=== PATIENT | female | born 1945 | race Caucasian/White ===

== ENCOUNTER → 2016-07-28 | Outpatient (CLI) | payer MEDICARE ==
[2016-07-28 16:51] LABS: ALBUMIN 4.1 g/dL (3.4-5.0); CALCULATED IONIZED CALCIUM 4.3 mg/dL (3.8-4.6); TOTAL PROTEIN 7.4 g/dL (6.4-8.5)
[2016-07-28 17:22] LABS: CLARITY,URINE Cloudy; GLUCOSE, URINE (UA) Trace (Negative); LEUKOCYTE ESTERASE ,URINE 3+ (Negative); PH,URINE 5.5 (5.0 - 8.0)
[2016-07-28 17:42] LABS: BILIRUBIN,URINE 3+ (Negative)
[2016-07-28 17:49] LABS: COLOR,URINE Brown; URINE CENTRIFUGED VOLUME 12 mL
[2016-07-28 17:50] LABS: RBC,URINE TNTC /HPF
== END ==
LOC: LAB 16:19
PROVIDERS: ATTEND Family Medicine
DX: Z51.81 Encounter for therapeutic drug level monitoring (principal); Z79.01 Long term (current) use of anticoagulants; R79.89 Other specified abnormal findings of blood chemistry; E78.2 Mixed hyperlipidemia; G72.0 Drug-induced myopathy; K71.2 Toxic liver disease with acute hepatitis; N39.0 Urinary tract infection, site not specified; R31.9 Hematuria, unspecified
CPT/HCPCS: 36415; 80053; 80061; 81003; 81015; 82550; 82977; 85610; 87088

== ENCOUNTER → 2016-08-16 | Outpatient (CLI) | payer MEDICARE | LOC: RAD 09:51 | PROVIDERS: ATTEND Family Medicine | DX: N60.12 Diffuse cystic mastopathy of left breast (principal); E10.65 Type 1 diabetes mellitus with hyperglycemia | CPT/HCPCS: 36415; 76642; 82043; 83036; G0204 ==

== ENCOUNTER → 2016-08-23 | Outpatient (CLI) | payer MEDICARE | LOC: RAD 09:17 | PROVIDERS: ATTEND Family Medicine | DX: N63 Unspecified lump in breast (principal); D68.4 Acquired coagulation factor deficiency | CPT/HCPCS: 36415; 85610; 85730; 88305; 88342; 88360 ==

== ENCOUNTER → 2016-10-24 | Outpatient (CLI) | payer MEDICARE ==
[~2016-10-24] MED LIST: AMIT25TA9 PO; ASP81CT PO; ATN50T PO; CHOL10002 PO; DGX.25T PO; IBUP-793 PO; INSU100V8 SC; INSU300I SQ; LEVO150T PO; LEVO200T PO; LISI1TAB8 PO; Lantus; MAGN400O7 PO; NF-FAMCIT PO; TERB12CR3 TOP
[2016-10-24 13:33] LABS: MEAN CORPUSCULAR VOLUME 86 FL (80-100); MEAN PLATELET VOLUME 10.3 FL (6.0-9.5); PLATELET COUNT 429 10^3uL (150-450); WHITE BLOOD COUNT 15.22 10^3uL (4.0-11.0)
[2016-10-24 13:34] LABS: MEAN CORPUSCULAR HEMOGLOBIN 26.9 PG (26.0-34.0); MEAN CORPUSCULAR HGB CONC 31.4 g/dL (31.0-37.0)
[2016-10-24 13:56] LABS: ALBUMIN 3.7 g/dL (3.4-5.0); ANION GAP 13.9 MEQ/L (3-15); MAGNESIUM* 1.7 mg/dL (1.6-2.3); TOTAL PROTEIN 7.2 g/dL (6.4-8.5)
[2016-10-24 14:18] LABS: BAND NEUTROPHILS % 0 % (0-6); EOSINOPHILS % 2 % (0-4); MONOCYTES # 0.6 #; MONOCYTES % 4 % (3-11); RBC MORPH NORMAL (NORMAL); SEGMENTED NEUTROPHILS % 81 % (51-67); TOTAL CELLS COUNTED 100
[2016-10-24 19:33] LABS: IRON 31 ug/dL (50-170); UNBOUND IRON CONTENT 343 ug/dl (126-382)
== END ==
LOC: LAB 13:23
PROVIDERS: ATTEND Internal Medicine Hematology & Oncology
DX: Z51.81 Encounter for therapeutic drug level monitoring (principal); Z79.01 Long term (current) use of anticoagulants; C50.012 Malignant neoplasm of nipple and areola, left female breast
CPT/HCPCS: 36415; 80053; 82728; 83540; 83550; 83615; 83735; 84100; 85007; 85027; 85610

== ENCOUNTER → 2016-11-02 | Outpatient (CLI) | payer MEDICARE ==
--- NOTE | 2016-11-02 10:20 | Diagnostic Imaging Report ---
PROCEDURE: CT head with and without contrast. TECHNIQUE: Multiple contiguous axial images were obtained through the brain before and after the administration of intravenous contrast. INDICATION: Recent diagnosis of breast CA. FINDINGS: Noncontrasted images show no intracranial hemorrhage. Ventricles and cortical gyral pattern appear normal. There is no mass effect. Following IV contrast injection, there is normal enhancement of the intracranial vessels. No focal enhancing lesions are demonstrated. No extra-axial fluid collection. Basal cisterns and CP angles appear normal. Bone windows show the mastoid air cells to be aerated. No evidence of calvarial sclerotic bony lesions. IMPRESSION: 1. No findings are seen to suggest metastatic disease. 2. No acute intracranial abnormalities demonstrated. Dictated by: Dictated on workstation # [id number]
--- NOTE | 2016-11-02 10:25 | Diagnostic Imaging Report ---
PROCEDURE: CT chest pelvis with and abdomen with and without contrast. TECHNIQUE: Multiple contiguous axial images were obtained through the chest, abdomen and pelvis after uneventful bolus administration of intravenous contrast. Precontrast acquisitions were acquired through the abdomen. INDICATION: Recently diagnosed breast CA. FINDINGS: CT CHEST: Bilateral mastectomies noted. Lungs are well aerated. There is subtle patchy infiltrate in right upper lobe anteriorly and laterally measuring approximately 8 mm. This does not appear mass-like. The lungs are otherwise clear. No pleural effusions or pericardial effusion. There is good opacification of the aorta and pulmonary arteries. Aorta is atherosclerotic without evidence of aneurysm. Pulmonary arteries appear normal. There is a pretracheal lymph node present measuring 13 mm which shows normal fatty hilum. No evidence of intramammary lymph nodes. There is noted seroma extending into the left axilla with surgical clips in left axilla. No residual lymphadenopathy demonstrated. There is a small seroma noted along the right anterior chest wall in the surgical bed. IMPRESSION: 1. Bilateral mastectomies with bilateral seromas noted. 2. Minimal patchy infiltrate measuring less than 1 cm in the right upper lobe. No changes are seen to suggest metastatic disease. CT ABDOMEN AND PELVIS: The liver appears normal. Gallbladder is absent. Bile ducts not are dilated. Pancreas and spleen are normal. The adrenal glands are normal. The kidneys appear normal. There is normal enhancement of the abdominal organs and vessels. Aorta is atherosclerotic without aneurysm. Abdominal vessels show no hemodynamic stenosis. No intra-abdominal adenopathy of pathologic size. The stomach and small bowel show oral contrast present which appears normal. There is stool and gas present throughout the colon in normal fashion. No evidence of obstruction. There are a few diverticuli without diverticulitis. Uterus is absent. No pelvic masses. Bone windows show no blastic lesions. IMPRESSION: 1. No findings are seen to suggest metastatic disease within the abdomen or pelvis. 2. Dense atherosclerotic disease of the aorta and abdominal vessels. Dictated by: Dictated on workstation # [id number]
== END ==
LOC: RAD 08:41
PROVIDERS: ATTEND Internal Medicine Hematology & Oncology
DX: C50.012 Malignant neoplasm of nipple and areola, left female breast (principal)
CPT/HCPCS: 70470; 71260; 74178; Q9967

== ENCOUNTER 2016-11-24 09:45 | Outpatient (RCR) | payer MEDICARE ==
--- NOTE | 2016-11-15 15:14 | PT/OT/ST INITIAL EVALUATION ---
Department of Health and Human Services Form Approved Health Care Financing Administration OMB No. [id number] PLAN OF CARE/ASSESSMENT FOR OUTPATIENT REHABILITATION (Complete for Initial Claims Only) 1. PATIENT'S NAME Trudi Stanley 2. ACC # [id number] 3. [facility] [id number] 4. PROVIDER NO. [id number] 5. TYPE: PT 6. PRIOR HOSPITALIZATION None 7. PRIMARY DX Status post bilateral mastectomy 8. SECONDARY DX NA 9. ONSET DATE September 13, 2016 10. REFERRAL DATE NA 11. SOC. DATE 11/02/2016 12. TIME OF EVAL 1:37 p.m. 12[address]YS[address]IAN Dr. Menjivar 13. CHARGES/UNITS NA 14. G CODES [id number] 15. PRIOR LEVEL OF FUNCTION; PERTINENT HISTORY (Prior therapy results, reason for referral.) S: Prior to therapy the patient did consent to today's evaluation and treatment. The patient is a 71-year-old female referred to physical therapy by Dr. Menjivar to address status post bilateral mastectomy. Personal health rating: The patient does rate her overall and general health as fair. Mechanism of injury: The patient states she was diagnosed with breast cancer early 2016. The patient then underwent a mastectomy on September 13, 2016 where she had lymph node involvement on the left breast and no cancerous lymph nodes on the right. The patient, however, did undergo a bilateral mastectomy. On September 13, the patient developed a hematoma, which then turned into an infection and the incisions then had to be reopened on October 16 for a second surgery in order to debride them. The patient states she was then healing from this and then approximately 1 week ago these wounds reopened and were packed by local doctor until she could see her surgeon again. The patient is to get daily dressing changes and if the condition does not rectify in 1 week, the patient will be placed on a wound V.A.C. the patient does state that she has been having bloody drainage present in the wound, but has noticed no odor from them. The patient has not undergone chemotherapy and has not undergone radiation. The patient states that her cancer is not hormone related. 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 Current level of function: Currently the patient is unable to work and is having significant difficulty with most tasks as this stresses the front of her chest, as well as being unable to care for her wound on her own. Therapy History: No previous physical therapy has been performed for this condition. Obstacles to delivery of care do include diabetes. Pain level: The patient reports she does have pain with this condition, but it is manageable. Past medical history: Includes thyroid cancer, uterine cancer, hypertension, CABG x1 and she has bilateral carotid artery blockages that they are unable to operate on. The patient additionally has asthma and Diabetes mellitus. Current medications: Includes a current antibiotic, insulin. The patient does state her blood sugars typically run 150 to 180. Patient's Goal: The patient's goal for physical therapy is to get the wounds to heal so she can get back to normal activities. 16. INITIAL ASSESSMENT/SAFETY PRECAUTIONS/MEDICAL COMPLICATIONS (Level of function at start of care. Be specific, use objective measures, list problems.) O: APPEARANCE, OBSERVATION AND GAIT: The patient presents as an older female in apparently healthy condition. Upon observing the wound on her chest, she does have significant decrease in skin flexibility with adhesions present around the incisions. Pictures and measurements were taken on this date. The measurement on the right was the wound consisted of 100% slough and had 3.2 x 0.2 x 0.2 cm. However, this wound is likely to increase in depth with further debridement. This patient did have sanguinous drainage from this wound with debridement. Throughout the left incision, the wound measures 6.4 x 1.0 x 2.8 cm with tunneling at 12 o'clock of 1.5 cm, 3 o'clock of 4.4 cm, 6 o'clock of 2 cm, and 9 o'clock of 2.6 cm. This wound does consist of 95% red granulation and 5% yellow slough. Following today's treatment both wounds consisted of 100% red granulation. TODAY'S TREATMENT: Today's evaluation did consist of a complex evaluation due to a significant history of cancer, diabetes, and carotid artery blockages, as well as extensive cardiac history. Dressing change was then completed following doctor's instructions. 17. INITIAL POC: (Specify procedures, modalities, short and usp goals) A: The patient presents to physical therapy with diagnosis of status post bilateral mastectomy with resultant increased infection risk, decreased wound bed quality and increased wound size. PROGNOSIS: This patient does have a good prognosis with regular therapy attendance and compliance with home exercise program. This patient is expected to benefit from physical therapy services in order to have decreased wound size, increased wound bed quality for complete closure of these wounds. INFORMED CONSENT: The diagnosis, prognosis, treatment plan, risks and expected outcomes were discussed with the patient and the patient did agree to today's established plan of care. SHORT TERM GOALS: 1. The patient to be compliant with bandaging in 1 week. 2. The patient's wound to be 50% decreased in size in 3 weeks to have decreased infection risk. 3. The patient's wound to be 100% closed in 6 weeks to return to unlimited function at home and in the community as allowed by the doctor. P: Plan to treat the patient daily as instructed by the physician. If the wound V.A.C. is to be pursued, 3 times a week for wound V.A.C. management at least 6 weeks or until the wound is fully closed. Therapeutic treatments to include comprehensive wound care including debridement and wound V.A.C. management if necessary, as well as patient education in home exercise program to be advanced as warranted including education on lymphedema risk and scar management. 18. FREQUENCY Daily treatment and if wound V.A.C. is pursued, 3 times a week. 19. DURATION 6 weeks. 20. FUNCTIONAL LEVEL (End of claim period) 21. PHYSICIAN SIGNATURE ? ON FILE OR ENTER HERE: 22. DATE: I certify the need for these services furnished under this plan of care and if for partial hospitalization. 23. CERTIFICATION FROM THROUGH FORM [id number]
== END 2016-11-27 09:31 | disposition home or self-care (01) ==
LOC: PT 09:45
PROVIDERS: ATTEND Surgery
DX: T81.31XD Disruption of external operation (surgical) wound, not elsewhere classified, subsequent encounter (principal)
CPT/HCPCS: 97140; 97163; 97597; 97605; G8990; G8991